=== PATIENT | male | born 1980 | race African-American/Black ===

== ENCOUNTER 2017-08-08 15:42 | Emergency (ER) | payer OTHER ==
[~2017-08-08] VITALS: Ht 185.4 cm; Wt 79.5 kg
[~2017-08-08 15:42] MED LIST: LURA40 PO; TRAZ-144 PO; TRAZ-147 PO
[2017-08-08 15:53] VITALS: BP 151/83
[2017-08-08] MEDS ORDERED: LURA80 PO (15:53)
[2017-08-08 16:43] LABS: BASOPHILS % (AUTO) 0.2 % (0.0-2.0); EOSINOPHILS % (AUTO) 0.4 % (1.0-6.0); HEMATOCRIT 41.5 % (41-53); HEMOGLOBIN 14.3 g/dL (13.5-17.5); LYMPHOCYTES # (AUTO) 1.2 K/uL (1.0-4.8); LYMPHOCYTES % (AUTO) 19.6 % (22.0-44.0); MEAN CORPUSCULAR HEMOGLOBIN 32.7 pg (26.0-34.0); MEAN CORPUSCULAR HGB CONC 34.5 G/dL (31.0-37.0); MEAN CORPUSCULAR VOLUME 95 fL (80-100); MONOCYTES # (AUTO) 0.4 K/uL (0.1-1.0); MONOCYTES % (AUTO) 6.7 % (2.0-9.0); NEUTROPHILS # (AUTO) 4.3 K/uL (1.8-7.7); NEUTROPHILS % (AUTO) 73.1 % (40.0-70.0); PLATELET COUNT (AUTO) 242 K/uL (150-450); RED BLOOD CELL COUNT(AUTO) 4.38 MIL/uL (4.50-5.90); RED CELL DISTRIBUTION WIDTH 13.6 % (11.5-14.5); WHITE BLOOD COUNT (AUTO) 5.9 K/uL (4.5-11.0)
[2017-08-08 16:51] LABS: ANION GAP 8 mmol/L (8-16); CALCIUM, TOTAL 8.5 mg/dL (8.8-10.5); CARBON DIOXIDE 28 mmol/L (22-29); CHLORIDE 104 mmol/L (98-107); CREATININE 0.88 mg/dL (0.60-1.30); GLOMERULAR FILTR. RATE CALC > 60 mL/min (>60); POTASSIUM 3.8 mmol/L (3.5-5.1); SODIUM SERUM 140 mmol/L (136-145); UREA NITROGEN, BLOOD 5 mg/dL (7-18)
[2017-08-08 16:57] LABS: ALANINE AMINOTRANSFERASE 30 U/L (12-78); ALBUMIN 3.8 g/dL (3.4-5.0); ASPARTATE AMINOTRANSFERASE 20 U/L (15-37); BILIRUBIN,TOTAL 0.5 mg/dL (0.1-1.0); TOTAL PROTEIN, SERUM 7.2 g/dL (6.4-8.2)
== END 2017-08-08 17:11 | disposition home or self-care (01) ==
LOC: EMS 15:43
DX: F20.0 Paranoid schizophrenia (principal); F10.10 Alcohol abuse, uncomplicated; I10 Essential (primary) hypertension; F32.9 Major depressive disorder, single episode, unspecified; F12.90 Cannabis use, unspecified, uncomplicated; Z88.8 Allergy status to other drugs, medicaments and biological substances
CPT/HCPCS: 36415; 80053; 80307; 85025; 99284; G0480

== ENCOUNTER 2024-04-11 00:33 | Emergency (ER) | payer MEDICARE, MEDICAID ==
[~2024-04-11] VITALS: Ht 185.4 cm; Wt 76.0 kg
[~2024-04-11 00:33] MED LIST changes: +DIPH50CA37 PO; +LORA-1000 PO; -LURA40 PO; +RISP4TAB94 PO; -TRAZ-144 PO; -TRAZ-147 PO; +TRAZ-257 PO
[2024-04-11 00:44] VITALS: TEMP 97.5
[2024-04-11 01:17] LABS: BASOPHILS % (AUTO) 0.5 % (0.0-2.0); EOSINOPHILS % (AUTO) 0.9 % (1.0-6.0); HEMATOCRIT 39.5 % (41-53); HEMOGLOBIN 13.1 g/dL (13.5-17.5); LYMPHOCYTES # (AUTO) 1.7 K/uL (1.0-4.8); LYMPHOCYTES % (AUTO) 34.1 % (22.0-44.0); MEAN CORPUSCULAR HEMOGLOBIN 31.9 pg (26.0-34.0); MEAN CORPUSCULAR HGB CONC 33.2 G/dL (31.0-37.0); MEAN CORPUSCULAR VOLUME 96 fL (80-100); MONOCYTES # (AUTO) 0.3 K/uL (0.1-1.0); MONOCYTES % (AUTO) 5.4 % (2.0-9.0); NEUTROPHILS % (AUTO) 59.1 % (40.0-70.0); PLATELET COUNT (AUTO) 279 K/uL (150-450); RED BLOOD CELL COUNT(AUTO) 4.12 MIL/uL (4.50-5.90); RED CELL DISTRIBUTION WIDTH 14.9 % (11.5-14.5)
[2024-04-11 01:28] LABS: ANION GAP 8 mmol/L (8-16); CALCIUM, TOTAL 8.7 mg/dL (8.8-10.5); CARBON DIOXIDE 29 mmol/L (22-29); CHLORIDE 104 mmol/L (98-107); CREATININE 0.94 mg/dL (0.60-1.30); GLOMERULAR FILTR. RATE CALC > 60 mL/min (>60); GLUCOSE,RANDOM 85 mg/dL (70-110); POTASSIUM 3.7 mmol/L (3.5-5.1); SODIUM SERUM 141 mmol/L (136-145); UREA NITROGEN, BLOOD 7 mg/dL (7-18)
[2024-04-11 01:36] LABS: ALCOHOL, BLOOD (SERUM) 208 mg/dL (0-10)
[2024-04-11 04:11] LABS: COVID AG,FIA SOURCE NASAL SWAB
[2024-04-11 04:22] LABS: ALCOHOL, URINE DRUG SCREEN POSITIVE (NEGATIVE); AMPHET/METH SCREEN,URINE NEGATIVE (NEGATIVE); BARBITURATE SCREEN, URINE NEGATIVE (NEGATIVE); BENZODIAZEPINES SCREEN,URINE NEGATIVE (NEGATIVE); CANNABINOID SCREEN,URINE POSITIVE (NEGATIVE); COCAINE SCREEN,URINE NEGATIVE (NEGATIVE); METHADONE SCREEN, URINE NEGATIVE (NEGATIVE); OPIATE SCREEN,URINE NEGATIVE (NEGATIVE); PHENCYCLIDINE SCREEN,URINE NEGATIVE (NEGATIVE)
[2024-04-11 04:33] LABS: SARS-COV2 (COVID) ANTIGEN,FIA Negative (Negative)
[2024-04-11 10:07] VITALS: BP 116/66; PULSE 67; RESP 16
== END 2024-04-11 10:52 | disposition home or self-care (01) ==
LOC: EMS 00:34
DX: F20.0 Paranoid schizophrenia (principal); F32.A Depression, unspecified; F12.90 Cannabis use, unspecified, uncomplicated; Z91.013 Allergy to seafood; Z91.040 Latex allergy status; Z20.822 Contact with and (suspected) exposure to COVID-19
CPT/HCPCS: 99284; 87426; 80048; 85025; 36415; 80307; G0480

== ENCOUNTER 2025-07-05 07:18 | Inpatient (IN) | payer MEDICARE ==
[~2025-07-05] VITALS: Ht 185.4 cm; Wt 79.0 kg
[~2025-07-05 07:18] MED LIST changes: -DIPH50CA37 PO; -LORA-1000 PO; +RISP3TAB77 PO; -RISP4TAB94 PO; -TRAZ-257 PO
[2025-07-05] MEDS ORDERED: ZOLPIDEM TARTRATE 10 MG TABLET PO PRN (08:00)
[2025-07-05 09:31] LABS: GLUCOMETER DEV NAME(LOC) POC.BV; POC SARS-COV2 AG, FIA NEGATIVE (NEGATIVE)
[2025-07-05] MEDS ORDERED: ACETAMINOPHEN 325 MG TABLET PO PRN (09:45)
[2025-07-05] MEDS ORDERED: BACITRACIN 28 GM OINTMENT TP PRN (09:45)
[2025-07-05] MEDS ORDERED: ALBUTEROL SULFATE HFA 90 MCG/PUFF 8 GM INHALER IH PRN (09:45)
[2025-07-05] MEDS ORDERED: BENZOCAINE/MENTHOL [CEPACOL] LOZENGE PO PRN (09:45)
[2025-07-05] MEDS ORDERED: MAG HYDROX/ALUMINUM HYD/SIMETH ES 30 ML SUSPENSION UDCUP PO PRN (09:45)
[2025-07-05] MEDS ORDERED: IBUPROFEN 600 MG TABLET PO PRN (09:45)
[2025-07-05] MEDS ORDERED: OMEPRAZOLE 20 MG CAPSULE PO PRN (09:45)
[2025-07-05] MEDS ORDERED: ONDANSETRON 4 MG TABLET PO PRN (09:45)
[2025-07-05] MEDS ORDERED: DOCUSATE SODIUM 100 MG CAPSULE PO PRN (09:45)
[2025-07-05] MEDS ORDERED: MAGNESIUM HYDROXIDE SUSPENSION 30 ML UDCUP PO PRN (09:45)
[2025-07-05] MEDS ORDERED: LOPERAMIDE HCL 2 MG CAPSULE PO PRN (09:45)
[2025-07-05 11:07] VITALS: BP 109/77; PULSE 93; TEMP 97.6; O2SAT 100
[2025-07-05 20:22] VITALS: RESP 17
[2025-07-06 11:09] VITALS: RESP 18
[2025-07-06 20:41] VITALS: RESP 17
[2025-07-07 08:33] VITALS: RESP 16
[2025-07-07] MEDS: SULFAMETHOX/TRIMETH DS 800-160 MG/TABLET PO SCH (08:51)
[2025-07-07 12:54] VITALS: RESP 17
[2025-07-07 20:20] VITALS: BP 93/61; PULSE 71; RESP 16; TEMP 98.7; O2SAT 98
[2025-07-09 21:03] VITALS: BP 106/75; PULSE 72; RESP 18; TEMP 97.7; O2SAT 99
[2025-07-10] MEDS: PETROLATUM,WHITE 28 GM JELLY TP PRN (14:39)
[2025-07-10] MEDS: PNEUMOCOCCAL VACCINE POLYVALENT 0.5 ML SYRINGE [PPSV23] IM. ONE (19:26)
[2025-07-10 20:14] VITALS: BP_SYST 108; BP_DIAS 68; BP_DIAS 85; PULSE 75; RESP 17; TEMP 97.5; O2SAT 97
[2025-07-11 10:57] LABS: APPEARANCE,URINE CLEAR (CLEAR); GLUCOSE, URINE (UA) NEGATIVE (NEGATIVE); LEUKOCYTE ESTERASE ,URINE NEGATIVE (NEGATIVE); NITRATE,URINE NEGATIVE (NEGATIVE); OCCULT BLOOD,URINE NEGATIVE (NEGATIVE); PH,URINE DRUG SCREEN 7.0 (5.0-8.0); SPECIFIC GRAVITIY, URINE 1.011 (1.003-1.030)
[2025-07-11 11:11] LABS: ALCOHOL, URINE DRUG SCREEN NEGATIVE (NEGATIVE); AMPHET/METH SCREEN,URINE NEGATIVE (NEGATIVE); BARBITURATE SCREEN, URINE NEGATIVE (NEGATIVE); CANNABINOID SCREEN,URINE NEGATIVE (NEGATIVE); COCAINE SCREEN,URINE NEGATIVE (NEGATIVE); METHADONE SCREEN, URINE NEGATIVE (NEGATIVE)
[2025-07-11 14:08] VITALS: BP 116/85; RESP 16; O2SAT 98
[2025-07-11 20:00] VITALS: BP 114/82; PULSE 91; RESP 18; TEMP 98.2; O2SAT 100
[2025-07-12 08:30] VITALS: BP 111/75; PULSE 78; RESP 18; TEMP 98.5; O2SAT 99
[2025-07-12 20:04] VITALS: BP 115/79; PULSE 80; RESP 18; TEMP 98.6; O2SAT 99
[2025-07-13 08:24] VITALS: BP 95/60; PULSE 72; RESP 18; TEMP 98.1; O2SAT 95
[2025-07-13 20:06] VITALS: BP 113/78; PULSE 86; RESP 17; TEMP 98.1; O2SAT 99
[2025-07-14 08:45] VITALS: BP 99/68; PULSE 60; RESP 17; TEMP 97.7; O2SAT 98
[2025-07-14 10:40] VITALS: BP 112/73; PULSE 68; RESP 16; O2SAT 98
[2025-07-14 20:04] VITALS: BP 109/63; PULSE 69; RESP 17; TEMP 98.1; O2SAT 98
[2025-07-15 12:45] VITALS: RESP 16
[2025-07-15 20:00] VITALS: BP 110/71; PULSE 82; RESP 17; TEMP 97.8; O2SAT 97
[2025-07-16] MEDS ORDERED: ARIP15TA27 PO (07:42)
[2025-07-16 08:38] VITALS: BP 106/71; PULSE 81; RESP 17; TEMP 97.2; O2SAT 100
[2025-07-16] MEDS ORDERED: SULF-261 PO (11:18)
== END 2025-07-16 10:26 | disposition home or self-care (01) | DRG 885 ==
LOC: B2X 07:54
PROVIDERS: ADMIT Psychiatry & Neurology Psychiatry; ATTEND Psychiatry & Neurology Psychiatry
DX: F25.9 Schizoaffective disorder, unspecified (principal); F41.9 Anxiety disorder, unspecified; G47.00 Insomnia, unspecified; K59.00 Constipation, unspecified; F19.10 Other psychoactive substance abuse, uncomplicated; F12.90 Cannabis use, unspecified, uncomplicated; F10.90 Alcohol use, unspecified, uncomplicated; F32.A Depression, unspecified; Y90.8 Blood alcohol level of 240 mg/100 ml or more; Z20.822 Contact with and (suspected) exposure to COVID-19
CPT/HCPCS: 80307; 81003

== ENCOUNTER 2025-08-23 01:14 | Emergency (ER) | payer MEDICARE, MEDICAID ==
[~2025-08-23] VITALS: Ht 185.4 cm; Wt 77.3 kg
[~2025-08-23 01:14] MED LIST changes: +ARIP15TA27 PO; -RISP3TAB77 PO; +SULF1TAB94 PO
[2025-08-23 01:56] VITALS: BP 106/78; PULSE 64; RESP 16; TEMP 97.9; O2SAT 98
[2025-08-23 02:21] LABS: PLATELET COUNT (AUTO) 303 K/uL (150-450); RED BLOOD CELL COUNT(AUTO) 4.16 MIL/uL (4.50-5.90); RED CELL DISTRIBUTION WIDTH 15.0 % (11.5-14.5); WHITE BLOOD COUNT (AUTO) 5.1 K/uL (4.5-11.0)
[2025-08-23 02:25] LABS: CALCIUM, TOTAL 8.8 mg/dL (8.8-10.5); CREATININE 0.84 mg/dL (0.60-1.30); GLOMERULAR FILTR. RATE CALC > 60 mL/min (>60); GLUCOSE,RANDOM 86 mg/dL (70-110); SODIUM SERUM 143 mmol/L (136-145); UREA NITROGEN, BLOOD 13 mg/dL (7-18)
[2025-08-23 03:18] LABS: APPEARANCE,URINE CLEAR (CLEAR); GLUCOSE, URINE (UA) NEGATIVE (NEGATIVE); LEUKOCYTE ESTERASE ,URINE NEGATIVE (NEGATIVE); NITRATE,URINE NEGATIVE (NEGATIVE); OCCULT BLOOD,URINE NEGATIVE (NEGATIVE); PH,URINE DRUG SCREEN 5.5 (5.0-8.0); SPECIFIC GRAVITIY, URINE 1.014 (1.003-1.030)
[2025-08-23 03:25] LABS: ALCOHOL, URINE DRUG SCREEN POSITIVE (NEGATIVE); AMPHET/METH SCREEN,URINE NEGATIVE (NEGATIVE); BARBITURATE SCREEN, URINE NEGATIVE (NEGATIVE); CANNABINOID SCREEN,URINE POSITIVE (NEGATIVE); COCAINE SCREEN,URINE NEGATIVE (NEGATIVE); METHADONE SCREEN, URINE NEGATIVE (NEGATIVE)
== END 2025-08-23 03:13 | disposition admitted as inpatient to this hospital (09) ==
LOC: EMS 01:16
DX: F20.9 Schizophrenia, unspecified (principal); F32.A Depression, unspecified; F12.90 Cannabis use, unspecified, uncomplicated; F10.90 Alcohol use, unspecified, uncomplicated; Z91.013 Allergy to seafood; Z88.8 Allergy status to other drugs, medicaments and biological substances; Z79.899 Other long term (current) drug therapy; Y90.6 Blood alcohol level of 120-199 mg/100 ml
CPT/HCPCS: 99284; 80048; 85025; 36415; 80307; 81003; G0480; 99285

== ENCOUNTER 2025-08-23 10:20 | Inpatient (IN) | payer MEDICARE, MEDICAID ==
[~2025-08-23] VITALS: Ht 185.4 cm; Wt 81.2 kg
[2025-08-23] MEDS ORDERED: ZOLPIDEM TARTRATE 10 MG TABLET PO PRN (11:45)
[2025-08-23 12:05] LABS: GLUCOMETER DEV NAME(LOC) POC.BV; POC SARS-COV2 AG, FIA NEGATIVE (NEGATIVE)
[2025-08-23] MEDS ORDERED: PNEUMOCOCCAL VACCINE POLYVALENT 0.5 ML SYRINGE [PPSV23] IM. ONE (16:00)
[2025-08-23 18:45] VITALS: BP 102/66; PULSE 66; RESP 18; TEMP 97.5; O2SAT 100
[2025-08-23 22:28] VITALS: BP 105/71; PULSE 71; RESP 18; TEMP 98.4
[2025-08-24] MEDS ORDERED: IBUPROFEN 600 MG TABLET PO PRN (08:15)
[2025-08-24] MEDS ORDERED: MAGNESIUM HYDROXIDE SUSPENSION 30 ML UDCUP PO PRN (08:15)
[2025-08-24] MEDS ORDERED: ALBUTEROL SULFATE HFA 90 MCG/PUFF 8 GM INHALER IH PRN (08:15)
[2025-08-24] MEDS ORDERED: OMEPRAZOLE 20 MG CAPSULE PO PRN (08:15)
[2025-08-24] MEDS ORDERED: PETROLATUM,WHITE 28 GM JELLY TP PRN (08:15)
[2025-08-24] MEDS ORDERED: ONDANSETRON 4 MG TABLET PO PRN (08:15)
[2025-08-24] MEDS ORDERED: BACITRACIN 28 GM OINTMENT TP PRN (08:15)
[2025-08-24] MEDS ORDERED: MAG HYDROX/ALUMINUM HYD/SIMETH ES 30 ML SUSPENSION UDCUP PO PRN (08:15)
[2025-08-24] MEDS ORDERED: LOPERAMIDE HCL 2 MG CAPSULE PO PRN (08:15)
[2025-08-24] MEDS ORDERED: BENZOCAINE/MENTHOL [CEPACOL] LOZENGE PO PRN (08:15)
[2025-08-24] MEDS ORDERED: DOCUSATE SODIUM 100 MG CAPSULE PO PRN (08:15)
[2025-08-24] MEDS ORDERED: ACETAMINOPHEN 325 MG TABLET PO PRN (08:15)
[2025-08-24 11:19] VITALS: RESP 17
[2025-08-24 20:09] VITALS: RESP 16
[2025-08-25 15:10] VITALS: RESP 17
[2025-08-25 20:29] VITALS: RESP 18
[2025-08-26] MEDS ORDERED: ARIP15TA27 PO (15:43)
== END 2025-08-26 12:30 | disposition home or self-care (01) | DRG 885 ==
LOC: B2X 11:40 → UNDOADMIN 11:40 → B2X 08-24 04:42
PROVIDERS: ADMIT Psychiatry & Neurology Psychiatry; ATTEND Psychiatry & Neurology Psychiatry
PROC: GZHZZZZ Group Psychotherapy (ICD-10-PCS; principal; 2025-08-23)
PROC: GZ51ZZZ Individual Psychotherapy, Behavioral (ICD-10-PCS; 2025-08-23)
DX: F25.1 Schizoaffective disorder, depressive type (principal); R45.851 Suicidal ideations; F12.10 Cannabis abuse, uncomplicated; F10.10 Alcohol abuse, uncomplicated; F41.9 Anxiety disorder, unspecified; G47.00 Insomnia, unspecified; Z20.822 Contact with and (suspected) exposure to COVID-19; Y90.9 Presence of alcohol in blood, level not specified; K59.00 Constipation, unspecified; Z79.899 Other long term (current) drug therapy; Z91.51 Personal history of suicidal behavior; Z88.8 Allergy status to other drugs, medicaments and biological substances
CPT/HCPCS: Z7610